=== PATIENT | female | born 1985 | race Caucasian/White ===

== ENCOUNTER 2022-01-19 21:02 | Emergency (ER) | payer OTHER, SELFPAY ==
[2022-01-19 21:19] VITALS: BP 146/88; PULSE 89; RESP 18; TEMP 37.1; O2SAT 98; BMI 53.2
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
[2022-01-19] MEDS: KETOROLAC 30 MG/ML VIAL IM (23:30)
[2022-01-20 00:22] VITALS: BP 125/88; PULSE 85; RESP 16; O2SAT 98
== END 2022-01-20 00:23 | disposition home or self-care (01) ==
PROVIDERS: Emergency Provider Emergency Medicine
DX: S46.911A Strain of unspecified muscle, fascia and tendon at shoulder and upper arm level, right arm, initial encounter (principal); S80.12XA Contusion of left lower leg, initial encounter; V89.2XXA Person injured in unspecified motor-vehicle accident, traffic, initial encounter
CPT/HCPCS: 73030; 73590; 96372; 99283; J1885